=== PATIENT | female | born 1980 | race Caucasian/White ===

== ENCOUNTER 2016-06-17 06:02 | Emergency (ER) ==
[2016-06-17 06:25] VITALS: BP 108/73
--- NOTE | 2016-06-17 06:46 | PROVIDER DOCUMENTATION ---
HPI-EENT General - General Chief Complaint: Toothache Stated Complaint: TOOTHACHE Time Seen by Provider: 06/17/16 06:24 Source: patient Allergies/Adverse Reactions: Patient Allergies Allergy/AdvReac Type Severity Reaction Status Date / Time acetaminophen Allergy Severe SWELLING Verified 06/17/16 06:25 cephalexin monohydrate * Allergy Severe SWELLING Verified 06/17/16 06:25 [From Keflex] haloperidol lactate * Allergy Severe VIOLENT Verified 06/17/16 06:25 [From Haldol] lithium [[place]] Allergy Severe VIOLENT Verified 06/17/16 06:25 methylphenidate HCl * Allergy Severe VIOLENT Verified 06/17/16 06:25 [From Ritalin] phenyltoloxamine citrate * Allergy Severe RESPIRATORY Verified 06/17/16 06:25 [From Flextra-650] sulfamethoxazole Allergy Severe SWELLING Verified 06/17/16 06:25 [From Bactrim] trimethoprim [From Bactrim] Allergy Severe SWELLING Verified 06/17/16 06:25 promethazine HCl * Allergy Intermediate paranoid Verified 06/17/16 06:25 [From Phenergan] cyclobenzaprine HCl * Allergy Mild Unknown Verified 06/17/16 06:25 [From Flexeril] clindamycin Allergy ANAPHYLAXIS Verified 06/17/16 06:25 Sulfa (Sulfonamide Allergy NAUSEA/VOMI Verified 06/17/16 06:25 Antibiotics) TING divalproex sodium AdvReac Severe NAUSEA/VOMI Verified 06/17/16 06:25 [From Depakote] TING haloperidol [From Haldol] AdvReac Severe VIOLENT Verified 06/17/16 06:25 Home Medications: Home Medication List Medication Instructions Recorded Confirmed Last Taken Type Carvedilol [Coreg] 6.25 mg PO BID 01/13/12 06/17/16 06/06/16 History LISINOpril [Prinivil] 10 mg PO HS 01/13/12 06/17/16 06/06/16 History Lamotrigine 200 mg PO BID 01/13/12 06/17/16 06/06/16 History Omeprazole [Prilosec] 40 mg PO DAILY 01/13/12 06/17/16 06/06/16 History Mirtazapine 30 mg PO HS 12/01/12 06/17/16 06/06/16 History PRAVAstatin [Pravachol] 40 mg PO HS 12/01/12 06/17/16 06/06/16 History Gabapentin [Neurontin] 300 mg PO TID 01/22/13 06/17/16 06/06/16 History Insulin Glargine [Lantus] 30 unit SUBQ QHS 03/21/13 06/17/16 06/06/16 History Insulin Lispro [Humalog] 13 unit SUBQ DIRECTED 03/21/13 06/17/16 06/06/16 History Hydrocodone/APAP 5 mg/325 mg 1 each PO Q8H PRN PRN #10 tablet 06/17/16 Unknown Rx [[place]-5] Penicillin V Potassium 500 mg PO TID #30 tablet 06/17/16 Unknown Rx - History of Present Illness-EENT General Nature of Presenting Problem: L upper tooth X 4 pain X 10 days. Denies F/C/N/V. Have not seen dentist yet. Quality of Pain: reports: aching, sharp Severity: reports: moderate Onset/Duration: reports: other (10 days) Timing: reports: still present Prearrival Treatment: Initiated no prearrival treatment Associated Symptoms: reports: facial pain/swelling, tooth pain. denies: cough, fever, nasal congestion/drainage, poor solids intake, sore throat Similar Symptoms Previously?: Yes Recently seen or treated by another doctor?: No Review of Systems - Adult - REVIEW OF SYSTEMS - ADULT Constitutional: reports: no symptoms reported. denies: fever, fatique Eyes: reports: no symptoms reported Ears, Nose, Mouth & Throat: reports: no symptoms reported, mouth/dental pain. denies: tinnitus, loose teeth, mouth swelling, throat pain, throat swelling Cardiovascular: reports: no symptoms reported Respiratory: reports: no symptoms reported Gastrointestinal: reports: no symptoms reported Genitourinary: reports: no symptoms reported Musculoskeletal: reports: no symptoms reported Integumentary: reports: no symptoms reported Neurological: reports: no symptoms reported Psychiatric: reports: no symptoms reported Endocrine: reports: no symptoms reported Hematologic/Lymphatic: reports: no symptoms reported Allergic/Immunologic: reports: no symptoms reported All Other Systems: Reviewed and Negative Past History - Adult - PAST MEDICAL HISTORY-ADULT Review of Records: reports: Old Records Reviewed, Nursing Assessment Review, Medications Reviewed Cardiovascular: reports: HTN, hyperlipidemia Respiratory: reports: asthma Gastrointestinal: reports: GERD Neurological: reports: Seizures/Epilepsy Psychiatric: reports: anxiety, bipolar, depression Endocrine/Immune: reports: Diabetes, thyroid disorder (hyperthyroid) - PRIOR SURGERIES/PROCEDURES Surgical/Procedure History: reports: orthopedic (extremity) (left forearm plate) - PRIOR HOSPITALIZATIONS Prior Hospitalizations: reports: for other non-related - IMMUNIZATION STATUS Childhood Immunizations: See Nurse Assessment Flu Vaccine: See Nurse Assessment - FAMILY HISTORY Family History: diabetes Physical Exam- EENT - Physical Exam EENT Initial Vital Signs Reviewed: Yes General Appearance: appears well, alert Nasal Exam: normal inspection Throat Exam: pharynx normal, dental tenderness, other (4 L upper tooth with decay, no abscess, no obvious facial swelling.). negative: excessive drooling, tongue swollen, tonsillar exudate Neck: non-tender, full range of motion, supple Respiratory: chest non-tender, lungs clear, normal breath sounds, no pleuratic chest pain, no respiratory distress Cardiovascular: normal peripheral pulses, regular rate, rhythm, no edema Abdominal Exam: normal bowel sounds, non tender, soft, no organomegaly Extremity: normal range of motion, non-tender, normal gait, normal inspection Integumentary: normal color, normal turgor, warm/dry Psych/Mental Status: normal mood/affect, normal thought content, normal thought process, oriented x 3 Departure - Departure Time of Disposition Order: 06:46 DIAGNOSIS: Toothache Disposition: HOME 01 Certified Medical Emergency: Emergent Condition: Stable Additional Instructions: Follow up with your dentist TERRY. Prescriptions: Hydrocodone/APAP 5 mg/325 mg [Clanton-5] 1 each PO Q8H PRN PRN #10 tablet PRN Reason: Pain Penicillin V Potassium 500 mg PO TID #30 tablet Referrals: Jenna Prasad MD [Primary Care Provider] -
[2016-06-17] MEDS ORDERED: NORCO-7.5 PO ONE (07:00)
== END 2016-06-17 07:07 | disposition home or self-care (01) ==
LOC: P.ED 06:02
DX: K08.89 Other specified disorders of teeth and supporting structures (principal); K02.9 Dental caries, unspecified; I10 Essential (primary) hypertension; E78.5 Hyperlipidemia, unspecified; K21.9 Gastro-esophageal reflux disease without esophagitis; R56.9 Unspecified convulsions; E11.9 Type 2 diabetes mellitus without complications; Z79.4 Long term (current) use of insulin; Z79.899 Other long term (current) drug therapy